=== PATIENT | female | born 1940 | race Caucasian/White ===

== ENCOUNTER 2019-02-28 15:25 | Observation (INO) ==
[2019-02-28] MEDS ORDERED: 0.9 % Sodium Chloride 1,000 ML IVC ONE (16:52)
[2019-02-28] MEDS ORDERED: *HR* Promethazine 25 MG/ML VIAL IVP ONE (16:52)
--- NOTE | 2019-02-28 17:00 | Emergency Department Note ---
Disposition Clinical Impression: Gastroenteritis HTN (hypertension) Qualifiers: Hypertension type: essential hypertension Qualified Code(s): I10 - Essential (primary) hypertension Disposition: Admitted As Inpatient Condition: Fair Time of Disposition: 19:45 General Adult HPI - General Chief complaint: ED Nausea/Vomiting/Diarrhea Stated complaint: N/V weakness, feels bad Time Seen by Provider: 02/28/19 16:40 Source: patient, family Mode of arrival: EMS Limitations: no limitations Nursing Notes Reviewed: Yes Vital Signs Reviewed: Yes - History of Present Illness HPI Narrative: Patient presents to the ED via EMS with complaint of nausea, vomiting and weakness. Symptoms began when she woke up this morning. She reports at least 5 episodes of nonbloody nonbilious emesis. His son states that her vomitus was thick and white. She has not eaten anything today due to the nausea and not feeling well. She had some abdominal cramps this morning but denies any pain currently. She feels generally weak and is still very nauseous despite taking Zofran at home and receiving Zofran by EMS. No diarrhea or constipation. She also reports some burning with urination that she noticed today. She reports intermittently feeling hot and cold with some sweats. She has a history of lung cancer that was diagnosed in 2010. She has done one round of radiation and 3 rounds of chemotherapy treatment and had a partial lung resection. She has not been on any treatment for her cancer since June. She has been on home oxygen at 3 L for over 10 years. History is also notable for COPD, CAD, high blood pressure, high cholesterol and [place]. On arrival her blood pressures to 21/79 her heart rate is 62. She states her heart rate is normally in the 50s and 60s due to being on beta blockers and her blood pressure has been high recently. There has been no recent medication changes. She takes 100 mg of metoprolol and 20 mg of lisinopril. She did not take her medications this morning due to her nausea and vomiting. Pain Scale: 0 - Related Data Home Medications Medication Instructions Recorded Confirmed Albuterol Sulfate [Ventolin Hfa] 2 puff IH Q4H PRN 07/05/16 02/28/19 Budesonide/Formoterol 160/4.5 2 puff IH BIDR 07/05/16 02/28/19 [Symbicort 160/4.5] Clopidogrel [Plavix] 75 mg PO DAILY 07/05/16 02/28/19 Furosemide [Lasix] 20 mg PO DAILY PRN 07/05/16 02/28/19 Lisinopril [Zestril] 20 mg PO BID 07/05/16 02/28/19 Levothyroxine [Synthroid] 25 mcg PO 0630 05/18/17 02/28/19 Metoprolol [Lopressor] 100 mg PO BID 05/18/17 02/28/19 Oxygen 3 l NS AD 05/18/17 02/28/19 Atorvastatin [Lipitor] 20 mg PO HS 02/28/19 02/28/19 Levocetirizine Dihydrochloride 5 mg PO DAILY 02/28/19 02/28/19 [Allergy Relief (Xyzal)] Montelukast [Singulair] 10 mg PO HS 02/28/19 02/28/19 Multivit/Iron/FA/K/Herb No.244 1 each PO DAILY 02/28/19 02/28/19 [Alive Women's Energy Mv Tablet] Allergies Allergy/AdvReac Type Severity Reaction Status Date / Time No Known Allergies Allergy Verified 02/28/19 15:26 Constitutional: Reports: fever (subjective), chills, weakness. Denies: weight change Eyes: Denies: eye pain, eye discharge, vision change ENT ED: Denies: ear pain, throat pain, dental pain, hearing loss, epistaxis, co ngestion, dysphagia Cardiovascular: Denies: chest pain, palpitations, dyspnea on exertion, edema, syncope Respiratory: Denies: cough, dyspnea, wheezes, hemoptysis, stridor Gastrointestinal: Reports: nausea, vomiting. Denies: abdominal pain, diarrhea, constipation, hematemesis, melena, hematochezia Genitourinary: Reports: dysuria. Denies: frequency, hematuria, discharge Musculoskeletal: Denies: back pain, neck pain, arthralgia, myalgia Integumentary: Denies: rash, abrasion, lesions Neurological: Denies: headache, weakness, numbness, paresthesias, confusion, abnormal gait, vertigo Psychiatric: Denies: anxiety, depression, suicidal thoughts, homicidal thoughts, auditory hallucinations, visual hallucinations Endocrine: Denies: fatigue Hematological/Lymphatic: Denies: easy bleeding, easy bruising Allergic/Immunologic: Denies: facial swelling, urticaria Past Medical History - Past Medical History Medical history: Reports: cancer, COPD, coronary artery disease, hyperlipidemia, hypertension, myocardial infarction, valvular heart disease Surgical history: Reports: angioplasty/stent, appendectomy, cataract, hysterectomy, other Psychiatric history: Reports: no psych history - Social History Smoking Status: Former smoker Smokeless Tobacco Status: No Alcohol use: Reports: none Drug use: Reports: none Physical Exam - General Limitations: no limitations General appearance: alert, in no apparent distress - Head Head exam: atraumatic, normocephalic, normal inspection - Eye Eye exam: Present: normal appearance, PERRL, EOMI - ENT ENT exam: normal exam, normal oropharynx, mucous membranes moist - Neck Neck exam: Present: normal inspection, full ROM, trachea midline - Chest Chest inspection: Present: normal inspection, symmetric chest wall rise - Respiratory Respiratory exam: Present: normal lung sounds bilaterally - Cardiovascular Cardiovascular exam: Present: regular rate, normal rhythm, normal heart sounds - Abdominal Exam Abdominal exam: Present: soft, tenderness, normal bowel sounds. Absent: distention, guarding, rebound, rigidity Abdominal tenderness: Present: diffuse, mild - Extremities Exam Extremities exam: Present: normal inspection, full ROM. Absent: tenderness, pedal edema - Back Exam Back exam: Present: normal inspection, full ROM. Absent: tenderness, CVA tenderness (R), CVA tenderness (L) - Neurological Exam Neurological exam: Present: alert, oriented X3 - Psychiatric Psychiatric exam: Present: normal affect, normal mood - Skin Skin exam: Present: warm, dry, intact, normal color Course Course Narrative: Patient presents to the ED complaining of nausea, vomiting, generalized weakness with some abdominal cramps this morning and subjective fever and chills. On arrival she is afebrile but hypertensive and bradycardic. EKG on arrival shows only sinus bradycardia with no block or other abnormalities. Will obtain lab work for further evaluation. We will give medication for nausea and hypertension. - Reevaluation(s) Reevaluation #1: Blood pressure did improve after getting hydralazine. Heart rate also increased up into the 60s. Reevaluation #2: Lab work was unremarkable other than some trace blood in her urine. She has not had any vomiting since she arrived but is still very nauseous. Blood pressure has started to increase back up as well. We will give patient's routine home meds. Repeat EKG still shows a sinus rhythm with just a slightly increased rate from previous. Discussed with patient all test results. She is still extremely nauseous and weak and does not feel steady on her feet to go home. I spoke to the hospitalist on-call, Dr. Subramanian, who has agreed to accept patient. Vital Signs Temperature 97.2 F L 02/28/19 15:27 Pulse Rate 52 02/28/19 15:27 Respiratory Rate 16 02/28/19 15:27 Blood Pressure 221/79 02/28/19 15:27 O2 Sat by Pulse Oximetry 98 02/28/19 15:27 Temperature 98.9 F 03/01/19 03:31 Pulse Rate 54 03/01/19 03:31 Respiratory Rate 17 03/01/19 03:31 Blood Pressure 149/66 03/01/19 03:31 O2 Sat by Pulse Oximetry 99 03/01/19 03:31 Oxygen Delivery Oxygen Delivery Nasal Cannula Medical Decision Making - Medical Records Medical records reviewed: Yes I reviewed the patient's medical records. - Lab Data Lab results reviewed: Yes I reviewed the patient's lab results. Result diagrams: 02/28/19 17:22 02/28/19 17:22 Lab Results 02/28/19 02/28/19 02/28/19 Range/Units 17:22 17:22 17:22 WBC 7.2 (4.3-11.1) K/mcL RBC 4.25 (3.82-4.97) M/mcL Hgb 12.6 (11.5-15.4) g/dL Hct 39.0 (35.3-44.9) % MCV 91.8 (83.0-100.0) fL MCH 29.6 (28.0-33.3) pg MCHC 32.3 (31.6-35.5) g/dL RDW 13.2 (11.5-14.5) % Plt Count 154 (140-400) K/mcL MPV 11.8 (9.4-12.4) fL Immature Gran % 0.1 (0-4) % Seg Neutrophils % 88.0 % Lymphocytes % 9.7 % Monocytes % 2.1 % Eosinophils % 0.0 % Basophils % 0.1 % Neutrophils # 6.4 (1.6-8.9) K/mcL Lymphocytes # 0.7 (0.6-4.6) K/mcL Monocytes # 0.2 (0.0-1.3) K/mcL Eosinophils # 0.0 (0.0-0.6) K/mcL Basophils # 0.0 (0.0-0.2) K/mcL Sodium 136 (136-145) mEq/L Potassium 3.6 (3.5-5.1) mEq/L Chloride 93 L (98-107) mEq/L Carbon Dioxide 35 H (23-29) mEq/L BUN 11 (8-23) mg/dL Creatinine 0.68 (0.60-1.20) mg/dL Est GFR ( Amer) > 60 (> 60) Est GFR (Non-Af Amer) > 60 (> 60) BUN/Creatinine Ratio 16 (6-26) Glucose 152 H (70-105) mg/dL Calculated Osmolality 284 (280-300) Calcium 10.1 (8.6-10.3) mg/dL Total Bilirubin 0.8 (0.3-1.0) mg/dL AST 38 (13-39) Units/L ALT 20 (7-52) Units/L Alkaline Phosphatase 68 (34-104) Units/L Troponin I < 0.03 (< 0.04) ng/mL Serum Total Protein 6.9 (6.4-8.9) g/dL Albumin 4.1 (3.5-5.7) g/dL Globulin 2.8 (2.4-3.5) g/dL Albumin/Globulin Ratio 1.5 (1.1-2.2) Lipase 24 (11-82) Units/L Urine Color (Yellow) Urine Clarity (Clear) Urine pH (5.0-8.0) pH Units Ur Specific [place] (1.010-1.025) Urine Protein (Neg-Trace) mg/dL Urine Glucose (UA) (Normal) mg/dL Urine Ketones (Negative) mg/dL Urine Blood (Negative) Urine Nitrite (Negative) Urine Bilirubin (Negative) Urine Urobilinogen (Normal) mg/dL Ur Leukocyte Esterase (Negative) Urine Microscopic RBC (0-3) per hpf Urine Microscopic WBC (0-3) per hpf Ur Squamous Epith Cells (None-Few) per lpf Amorphous Sediment (Few) Urine Mucus (Few) Ur Culture Indicated? (NO) 02/28/19 Range/Units 18:10 WBC (4.3-11.1) K/mcL RBC (3.82-4.97) M/mcL Hgb (11.5-15.4) g/dL Hct (35.3-44.9) % MCV (83.0-100.0) fL MCH (28.0-33.3) pg MCHC (31.6-35.5) g/dL RDW (11.5-14.5) % Plt Count (140-400) K/mcL MPV (9.4-12.4) fL Immature Gran % (0-4) % Seg Neutrophils % % Lymphocytes % % Monocytes % % Eosinophils % % Basophils % % Neutrophils # (1.6-8.9) K/mcL Lymphocytes # (0.6-4.6) K/mcL Monocytes # (0.0-1.3) K/mcL Eosinophils # (0.0-0.6) K/mcL Basophils # (0.0-0.2) K/mcL Sodium (136-145) mEq/L Potassium (3.5-5.1) mEq/L Chloride (98-107) mEq/L Carbon Dioxide (23-29) mEq/L BUN (8-23) mg/dL Creatinine (0.60-1.20) mg/dL Est GFR ( Amer) (> 60) Est GFR (Non-Af Amer) (> 60) BUN/Creatinine Ratio (6-26) Glucose (70-105) mg/dL Calculated Osmolality (280-300) Calcium (8.6-10.3) mg/dL Total Bilirubin (0.3-1.0) mg/dL AST (13-39) Units/L ALT (7-52) Units/L Alkaline Phosphatase (34-104) Units/L Troponin I (< 0.04) ng/mL Serum Total Protein (6.4-8.9) g/dL Albumin (3.5-5.7) g/dL Globulin (2.4-3.5) g/dL Albumin/Globulin Ratio (1.1-2.2) Lipase (11-82) Units/L Urine Color Light Yellow (Yellow) Urine Clarity Clear (Clear) Urine pH 8.5 H (5.0-8.0) pH Units Ur Specific [place] 1.015 (1.010-1.025) Urine Protein 100 H (Neg-Trace) mg/dL Urine Glucose (UA) Normal (Normal) mg/dL Urine Ketones 15 H (Negative) mg/dL Urine Blood Trace-intact H (Negative) Urine Nitrite Negative (Negative) Urine Bilirubin Negative (Negative) Urine Urobilinogen Normal (Normal) mg/dL Ur Leukocyte Esterase Negative (Negative) Urine Microscopic RBC 0-3 (0-3) per hpf Urine Microscopic WBC 0-3 (0-3) per hpf Ur Squamous Epith Cells None Seen (None-Few) per lpf Amorphous Sediment Few (Few) Urine Mucus Few (Few) Ur Culture Indicated? NO (NO) - Radiology Data Radiology results reviewed: Yes I reviewed the patient's radiology results. ITS Impressions Chest X-Ray 02/28/19 16:54 IMPRESSION: 1. Low lung volumes but no active pulmonary disease. D/ / Ziyad Addison MD / Ziyad Addison MD Interpreting Provider: Ziyad Addison MD - EKG Data EKG #1 EKG attestation: Yes I reviewed and interpreted this EKG. EKG shows normal: sinus rhythm Rate: bradycardia (rate 49) Rhythm: NSR [place]/QRS: IVCD When compared to previous EKG there are: changes noted (rate change from 63 on 05/18/17 to 49 ) EKG #2 EKG shows normal: sinus rhythm Rate: normal (rate 61) [place]/QRS: normal, IVCD When compared to previous EKG there are: no significant changes (other than increased rate)
[2019-02-28 17:48] LABS: Alanine Aminotransferase 20 Units/L (7-52); Albumin 4.1 g/dL (3.5-5.7); Albumin/Globulin Ratio 1.5 (1.1-2.2); Alkaline Phosphatase 68 Units/L (34-104); Aspartate Amino Transferase 38 Units/L (13-39); BUN/Creatinine Ratio 16 (6-26); Bilirubin,Total 0.8 mg/dL (0.3-1.0); Blood Urea Nitrogen 11 mg/dL (8-23); Calcium 10.1 mg/dL (8.6-10.3); Carbon Dioxide 35 mEq/L (23-29); Chloride 93 mEq/L (98-107); Globulin 2.8 g/dL (2.4-3.5); Glucose 152 mg/dL (70-105); Lipase 24 Units/L (11-82); Osmolality,Calculated 284 (280-300); Potassium 3.6 mEq/L (3.5-5.1); Sodium 136 mEq/L (136-145); Total Protein 6.9 g/dL (6.4-8.9); eGFR For African Americans > 60 (> 60); eGFR For Non-African Americans > 60 (> 60)
[2019-02-28 18:04] LABS: Basophils % 0.1 %; Hemoglobin 12.6 g/dL (11.5-15.4); Immature Granulocytes % 0.1 % (0-4); Lymphocytes # 0.7 K/mcL (0.6-4.6); Lymphocytes % 9.7 %; Mean Corpuscular HGB Conc 32.3 g/dL (31.6-35.5); Mean Corpuscular Hemoglobin 29.6 pg (28.0-33.3); Mean Corpuscular Volume 91.8 fL (83.0-100.0); Mean Platelet Volume 11.8 fL (9.4-12.4); Monocytes # 0.2 K/mcL (0.0-1.3); Monocytes % 2.1 %; Neutrophils # 6.4 K/mcL (1.6-8.9); Platelet Count 154 K/mcL (140-400); Red Blood Count 4.25 M/mcL (3.82-4.97); Red Cell Distribution Width 13.2 % (11.5-14.5); White Blood Count 7.2 K/mcL (4.3-11.1)
[2019-02-28 18:16] LABS: Bilirubin,Urine Negative (Negative); Blood,Urine Trace-intact (Negative); Clarity,Urine Clear (Clear); Glucose,Urine (UA) Normal (Normal); Ketones,Urine 15 mg/dL (Negative); Leukocyte Esterase,Urine Negative (Negative); Nitrite,Urine Negative (Negative); PH,Urine 8.5 pH Units (5.0-8.0); Protein,Urine 100 mg/dL (Neg-Trace); Specific Gravity,Urine 1.015 (1.010-1.025); Urobilinogen,Urine Normal (Normal)
[2019-02-28 18:19] LABS: Color,Urine Light Yellow (Yellow)
[2019-02-28 18:26] LABS: Amorphous Sediment,Urine Few (Few); Mucus,Urine Few (Few); RBC,Urine 0-3 per hpf (0-3); Squamous Epithelial Cell,Urine None Seen per lpf (None-Few); WBC,Urine 0-3 per hpf (0-3)
[2019-02-28] MEDS ORDERED: Ondansetron 4 MG/2 ML VIAL IVP ONE (19:01)
[2019-02-28] MEDS ORDERED: Naloxone 0.4 MG/ML INJ IVP PRN ×2 (19:47→20:45)
[2019-02-28] MEDS ORDERED: Ondansetron 4 MG/2 ML VIAL IVP PRN ×2 (19:53→20:45)
[2019-02-28] MEDS ORDERED: Lisinopril 20 MG TABLET PO SCH (20:00)
[2019-02-28] MEDS ORDERED: 0.9 % Sodium Chloride 1,000 ML IVC SCH (20:00)
[2019-02-28] MEDS ORDERED: NON-FORMULARY MEDICATION 1 EACH EACH (Oxygen 3 L) NS SCH (20:45)
[2019-02-28] MEDS: 0.9 % Sodium Chloride 1,000 ML IVC SCH (22:51)
[2019-02-28] MEDS: Lisinopril 20 MG TABLET PO SCH (22:52)
[2019-02-28] MEDS: Budesonide/Formoterol 160/4.5 1 PUFF INH IH SCH (23:16)
[2019-03-01] MEDS: Levothyroxine 25 MCG TABLET PO SCH (06:08)
[2019-03-01] MEDS: 0.9 % Sodium Chloride 1,000 ML IVC SCH (06:42)
[2019-03-01] MEDS: Multivit/Ca/Min/Fe/FA 1 TAB TABLET PO SCH (08:26)
[2019-03-01] MEDS: [UNRECOGNIZED DRUG - REMARK] PO SCH (08:26)
[2019-03-01] MEDS: Lisinopril 20 MG TABLET PO SCH ×2 (08:26→20:53)
[2019-03-01] MEDS ORDERED: Lisinopril 20 MG TABLET PO SCH (09:00)
[2019-03-01] MEDS: Budesonide/Formoterol 160/4.5 1 PUFF INH IH SCH ×2 (09:03→22:34)
--- NOTE | 2019-03-01 11:38 | Internal Med History&Physical ---
Date of Encounter: 03/01/19 Time of Encounter: 11:05 Assessment and Plan (1) Gastroenteritis Current visit: Yes Status: Acute IV fluids have been ordered. Anti-emetics will be given as needed. (2) HTN (hypertension) Current visit: Yes Status: Chronic Continue metoprolol and lisinopril. Hydralazine will also be given as needed to control blood pressure Qualifiers: Hypertension type: essential hypertension Qualified Code(s): I10 - Essential (primary) hypertension (3) COPD (chronic obstructive pulmonary disease) Current visit: No Status: Chronic Continue oxygen 28/03 with Singulair, Symbicort, and prn albuterol Rx Qualifiers: COPD type: emphysema Emphysema type: unspecified Qualified Code(s): J43.9 - Emphysema, unspecified (4) Lung cancer Current visit: No Status: Acute As per oncologist Qualifiers: Laterality: unspecified laterality Lung location: unspecified part of lung Qualified Code(s): C34.90 - Malignant neoplasm of unspecified part of unspecified bronchus or lung (5) Hypothyroidism Current visit: Yes Status: Chronic Check TSH in a.m. Qualifiers: Hypothyroidism type: unspecified Qualified Code(s): E03.9 - Hypothyroidism, unspecified (6) Weight loss Current visit: Yes Status: Acute Check TSH in a.m. Lung cancer status not known Internal Medicine - H&P: HPI Chief complaint: Vomiting Admitted From: Emergency Dept Plans for Post Hospital Care: Home History of present illness: Ms. Gillespie is a 78 year old female who came to emergency room stating she had 3-4 episodes of nonbloody vomiting onset morning of February 28. She denies diarrhea. She reports feeling feverish and chills. There was no significant abdominal pain. She was evaluated in emergency room and was felt to have acute gastroenteritis. She was admitted to [facility] floor for ongoing care needs. She denies other family members with similar symptoms. GI history is pertinent for a reported pancreatic mass found fall 2017. She declined biopsy. She denies disorders of her liver gallbladder or exocrine pancreas otherwise. Past Med Surg Social Fam HX - Past Medical History Medical history: cancer, COPD, coronary artery disease, hyperlipidemia, hypertension, myocardial infarction, valvular heart disease Additional medical history: Lung cancer Psychiatric history: no psych history - Past Surgical History Surgical History: angioplasty/stent, appendectomy, cataract, hysterectomy, other Additional surgical history: 2 CARDIAC STENTS. ROTATOR CUFF , LUMPECTOMY, ABCESS LEFT BREAST REMOVED, R UPPER LOBECTOMY, - Social History Smoking Status: Former smoker Smokeless Tobacco Status: No Alcohol use: none Drug use: none - Family History Father Living Status: Hx Family Cardiac Disorders: Yes (ID) Mother Living Status: Hx Family Cardiac Disorders: Yes Sister Hx Family Cardiac Disorders: Yes (ID AT 60) Internal Medicine - H&P: Meds Albuterol Sulfate [Ventolin Hfa] 2 puff IH Q4H PRN 07/05/16 [History] Budesonide/Formoterol 160/4.5 [Symbicort 160/4.5] 2 puff IH BIDR 07/05/16 [History] Clopidogrel [Plavix] 75 mg PO DAILY 07/05/16 [History] Furosemide [Lasix] 20 mg PO DAILY PRN 07/05/16 [History] Lisinopril [Zestril] 20 mg PO BID 07/05/16 [History] Levothyroxine [Synthroid] 25 mcg PO 0630 05/18/17 [History] Metoprolol [Lopressor] 100 mg PO BID 05/18/17 [History] Oxygen 3 l NS AD 05/18/17 [History] Atorvastatin [Lipitor] 20 mg PO HS 02/28/19 [History] Levocetirizine Dihydrochloride [Allergy Relief (Xyzal)] 5 mg PO DAILY 02/28/19 [History] Montelukast [Singulair] 10 mg PO HS 02/28/19 [History] Multivit/Iron/FA/K/Herb No.244 [Alive Women's Energy Mv Tablet] 1 each PO DAILY 02/28/19 [History] Allergy/AdvReac Type Severity Reaction Status Date / Time No Known Allergies Allergy Verified 02/28/19 15:26 All Systems PM: A 10-system review of systems was performed and is negative for pertinent findings except as documented above in the HPI. Review of systems: Gen.: Her weight has decreased from 94.574 kg on 05/20/2017 to present weight of 73.4 kg. This was unintentional. Cardiovascular: She has hypertension and known ASHD status post ID September 2008. She had 2 stents placed immediately post ID. She reports no further heart catheter has been done. Regadenoson EST 05/20/2017 showed LVEF of 62%. The EKG and perfusion imaging was negative for ischemia or infarct. Echocardiogram 05/19/2017 showed LVEF of 50-55%. There was mild aortic regurgitation. There was inability to estimated RVSP due to lack of TR jet. Interventricular septum and posterior wall thickness measurements were normal at 1.00 cm. E/A ratio was 0.4. She denies DVT or pulmonary embolism. Respiratory: She smoked from age [age] up to 2 packs per day. She has a diagnosis of COPD and wears oxygen 28/03. She was diagnosed with CARRIE and used CPAP for a period of time but states her machine was "stolen" and she has not had replacement unit. She reports she was diagnosed with lung cancer 2011 underwent resection followed by chemotherapy. She follows at [facility]. GI: As per history of present illness : She reports occasional urinary incontinence. She denies other kidney or bladder disorders. Neurologic: She denies large distribution strokes or seizures. Endocrine: She has hypothyroidism and hyperlipidemia. She denies known diabetes. Hematology/oncology: She had lung cancer as per above. She denies other internal malignancies or anemia Psychiatric: She has anxiety but denies depression or other mental health issues. [place] skeletal: She has DJD but denies gout or other bone joint or muscle disorders. - Constitutional Vitals: Temp Pulse Resp BP Pulse Ox 98.0 F 63 16 204/74 93 03/01/19 08:16 03/01/19 08:16 03/01/19 09:04 03/01/19 08:16 03/01/19 09:04 Exam: Gen.: She is a well-developed well-nourished female lying in bed who complains of nausea. HEENT: Head is atraumatic and normocephalic. Eyes: EOMI. There is no scleral icterus. Mouth: Mucosa is moist. Neck: Supple and nontender. There is no thyromegaly or adenopathy noted. Heart: Regular without murmurs gallops or ectopics Lungs: No wheezes or crackles are heard. Abdomen: Soft and nontender. No masses or guarding are noted. Bowel sounds are diminished. Extremities: There is no cyanosis edema or clubbing noted. Dorsalis pedis and posterior tibial pulses are trace to 1+ palpable bilaterally. Neurologic: Mental status: She is talkative and a fair to good historian. Cranial nerves: Smile is symmetric. Forehead wrinkles bilaterally. Tongue protrudes midline. EOMI. Motor: There is no pronator drift. Cerebellar: Finger to nose is intact bilaterally. Skin: Warm and dry Internal Med - H&P Results - Labs CBC & Chem 7: 02/28/19 17:22 02/28/19 17:22 Labs: Short CBC 02/28/19 Range/Units 17:22 WBC 7.2 (4.3-11.1) K/mcL Hgb 12.6 (11.5-15.4) g/dL Hct 39.0 (35.3-44.9) % Plt Count 154 (140-400) K/mcL Neutrophils # 6.4 (1.6-8.9) K/mcL BMP 02/28/19 17:22 Sodium 136 Potassium 3.6 Chloride 93 L Carbon Dioxide 35 H BUN 11 Creatinine 0.68 Glucose 152 H Calcium 10.1 Cardiac Enzymes 02/28/19 Range/Units 17:22 Troponin I < 0.03 (< 0.04) ng/mL Liver Function 02/28/19 Range/Units 17:22 Total Bilirubin 0.8 (0.3-1.0) mg/dL AST 38 (13-39) Units/L ALT 20 (7-52) Units/L Alkaline Phosphatase 68 (34-104) Units/L Albumin 4.1 (3.5-5.7) g/dL Urine 02/28/19 Range/Units 18:10 Urine Color Light Yellow (Yellow) Urine Clarity Clear (Clear) Urine pH 8.5 H (5.0-8.0) pH Units Ur Specific [place] 1.015 (1.010-1.025) Urine Protein 100 H (Neg-Trace) mg/dL Urine Glucose (UA) Normal (Normal) mg/dL - Impressions ITS Impressions Chest X-Ray 02/28/19 16:54 IMPRESSION: 1. Low lung volumes but no active pulmonary disease. D/ / Ziyad Addison MD / Ziyad Addison MD Interpreting Provider: Ziyad Addison MD - VTE Reasons for not Prescribing Prophylaxis: Treatment not Indicated - Low risk for VTE
[2019-03-01] MEDS ORDERED: Ondansetron 4 MG/2 ML VIAL IVP PRN (11:49)
[2019-03-01] MEDS: 0.45 % Sodium Chloride w/KCl 20 MEQ/1,000 ML MLS IVC SCH ×2 (12:23→22:36)
--- NOTE | 2019-03-01 16:00 | Electrocardiograph Report ---
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
--- NOTE | 2019-03-01 16:09 | Electrocardiograph Report ---
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
--- NOTE | 2019-03-01 16:41 | Electrocardiograph Report ---
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
[2019-03-01] MEDS: *HR* Promethazine 25 MG/ML VIAL IVP PRN (22:47)
[2019-03-02] MEDS: *HR* Promethazine 25 MG/ML VIAL IVP PRN ×3 (03:01→13:37)
[2019-03-02] MEDS: 0.45 % Sodium Chloride w/KCl 20 MEQ/1,000 ML MLS IVC SCH (05:30)
[2019-03-02] MEDS: Levothyroxine 25 MCG TABLET PO SCH (05:30)
[2019-03-02 06:16] LABS: Basophils % 0.1 %; Eosinophils % 0.1 %; Hemoglobin 12.8 g/dL (11.5-15.4); Immature Granulocytes % 0.4 % (0-4); Lymphocytes % 9.2 %; Mean Corpuscular Hemoglobin 29.6 pg (28.0-33.3); Mean Corpuscular Volume 92.4 fL (83.0-100.0); Mean Platelet Volume 11.7 fL (9.4-12.4); Monocytes # 0.6 K/mcL (0.0-1.3); Monocytes % 5.6 %; Neutrophils # 9.3 K/mcL (1.6-8.9); Platelet Count 172 K/mcL (140-400); Red Blood Count 4.33 M/mcL (3.82-4.97); Red Cell Distribution Width 13.4 % (11.5-14.5); Segmented Neutrophils % 84.6 %
[2019-03-02 06:55] LABS: BUN/Creatinine Ratio 18 (6-26); Blood Urea Nitrogen 10 mg/dL (8-23); Calcium 9.7 mg/dL (8.6-10.3); Carbon Dioxide 37 mEq/L (23-29); Chloride 91 mEq/L (98-107); Glucose 126 mg/dL (70-105); Magnesium 1.3 mg/dL (1.6-2.6); Osmolality,Calculated 277 (280-300); Potassium 3.1 mEq/L (3.5-5.1); Sodium 133 mEq/L (136-145); eGFR For African Americans > 60 (> 60); eGFR For Non-African Americans > 60 (> 60)
[2019-03-02] MEDS: Multivit/Ca/Min/Fe/FA 1 TAB TABLET PO SCH (09:29)
[2019-03-02] MEDS: Lisinopril 20 MG TABLET PO SCH ×2 (09:30→20:28)
[2019-03-02] MEDS: Budesonide/Formoterol 160/4.5 1 PUFF INH IH SCH ×2 (09:55→23:03)
[2019-03-02] MEDS ORDERED: Isovue-370 500 ML BOTTLE IVP ONE (10:47)
--- NOTE | 2019-03-02 10:54 | Internal Med Progress Note ---
Date of Encounter: 03/02/19 Time of Encounter: 10:52 - Assessment and plan (1) Intractable nausea and vomiting Current Visit: Yes Status: Acute Assessment and plan: Unclear etiology with persistent nausea and intermittent vomiting with diminished BMs. There is report of history of underlying pancreatic mass. Will obtain CT abd/pelvis for further evaluation and proceed with supportive care. Qualifiers: Vomiting type: unspecified Qualified Code(s): R11.2 - Nausea with vomiting, unspecified (2) Hypokalemia Current Visit: Yes Status: Acute Assessment and plan: Will replace with oral and IV potassium and monitor. (3) HTN (hypertension) Current Visit: Yes Status: Chronic Assessment and plan: Uncontrolled. Will continue current regimen for now and treat underlying nausea. Qualifiers: Hypertension type: essential hypertension Qualified Code(s): I10 - Essential (primary) hypertension (4) COPD (chronic obstructive pulmonary disease) Current Visit: No Status: Chronic Assessment and plan: Stable. Continue home regimen. Qualifiers: COPD type: emphysema Emphysema type: unspecified Qualified Code(s): J43.9 - Emphysema, unspecified (5) Hypothyroidism Current Visit: Yes Status: Chronic Assessment and plan: Will continue home replacement regimen. Qualifiers: Hypothyroidism type: unspecified Qualified Code(s): E03.9 - Hypothyroidism, unspecified - Time Spent With Patient 25 - 35 minutes - Subjective Interval history: Pt reports that nausea somewhat better, but remains moderate to severe. She notes that she has no appetite and feels sick with any oral intake. No diarrhea. + abdominal bloating and fullness without nat abdominal pain. Pt reports no BMs for 4 days and denies any recent flatus. - Constitutional Vitals: Temp Pulse Resp BP Pulse Ox 98.8 F 76 18 158/85 97 03/02/19 06:25 03/02/19 06:25 03/02/19 09:56 03/02/19 06:25 03/02/19 09:56 Exam: Gen: Lying in bed, NAD HEENT: NC, AT Neck: Trachea midline, no mass Pulm: No respiratory distress, CTAB CV: Normal S1 and S2, RRR Abdomen: Soft, NT, + mild distension, BS present, but diminished Ext: No C/C/E Neuro: No appreciable motor/sensor deficits Skin: Warm and dry, no rash Psych: A&Ox3 Internal Medicine: Result - Labs CBC & Chem 7: 03/02/19 05:56 03/02/19 05:56 Labs: Short CBC 03/02/19 Range/Units 05:56 WBC 11.0 D (4.3-11.1) K/mcL Hgb 12.8 (11.5-15.4) g/dL Hct 40.0 (35.3-44.9) % Plt Count 172 (140-400) K/mcL Neutrophils # 9.3 H (1.6-8.9) K/mcL BMP 03/02/19 05:56 Sodium 133 L Potassium 3.1 L Chloride 91 L Carbon Dioxide 37 H BUN 10 Creatinine 0.57 L Glucose 126 H Calcium 9.7 Cardiac Enzymes 03/01/19 03/01/19 Range/Units 13:50 15:32 Troponin I 0.05 H* 0.05 H* (< 0.04) ng/mL - VTE Reasons for not Prescribing Prophylaxis: Treatment not Indicated - Low risk for VTE Consult Discharge Plan - Plan Referrals: Petros Rodriguez MD [Primary Care Provider] - 1 week
[2019-03-02] MEDS: [UNRECOGNIZED DRUG - REMARK] PO SCH (13:24)
[2019-03-02] MEDS ORDERED: 0.9 % Sodium Chloride 1,000 ML IVC SCH (15:00)
[2019-03-02 18:25] LABS: Bilirubin,Urine Negative (Negative); Blood,Urine Trace-intact (Negative); Clarity,Urine Clear (Clear); Color,Urine Yellow (Yellow); Glucose,Urine (UA) Normal (Normal); Ketones,Urine Negative (Negative); Leukocyte Esterase,Urine Negative (Negative); Nitrite,Urine Negative (Negative); PH,Urine 7.5 pH Units (5.0-8.0); Protein,Urine 100 mg/dL (Neg-Trace); Specific Gravity,Urine 1.015 (1.010-1.025); Urobilinogen,Urine Normal (Normal)
[2019-03-02 18:31] LABS: RBC,Urine 0-3 per hpf (0-3); Squamous Epithelial Cell,Urine Few per lpf (None-Few); WBC,Urine 0-3 per hpf (0-3)
[2019-03-02] MEDS ORDERED: cefTRIAXone 1,000 MG in 0.9 % Sodium Chloride Mini Bag 100 ML IVPB SCH (19:00)
[2019-03-02] MEDS: Ondansetron 4 MG/2 ML VIAL IVP PRN (20:28)
[2019-03-02] MEDS: cefTRIAXone 2,000 MG in Water for inj. (sterile) 20 ML IVPB SCH (20:29)
[2019-03-02] MEDS: D5% in 0.9% NACL w KCl 20 MEQ/1,000 ML MLS IVC SCH (22:46)
[2019-03-03 04:57] LABS: Basophils % 0.2 %; Eosinophils % 0.4 %; Hematocrit 41.2 % (35.3-44.9); Hemoglobin 13.1 g/dL (11.5-15.4); Immature Granulocytes % 0.4 % (0-4); Lymphocytes # 1.3 K/mcL (0.6-4.6); Lymphocytes % 14.7 %; Mean Corpuscular HGB Conc 31.8 g/dL (31.6-35.5); Mean Corpuscular Hemoglobin 29.6 pg (28.0-33.3); Mean Corpuscular Volume 93.2 fL (83.0-100.0); Mean Platelet Volume 11.9 fL (9.4-12.4); Monocytes # 0.8 K/mcL (0.0-1.3); Neutrophils # 6.9 K/mcL (1.6-8.9); Platelet Count 186 K/mcL (140-400); Red Blood Count 4.42 M/mcL (3.82-4.97); Red Cell Distribution Width 13.2 % (11.5-14.5); Segmented Neutrophils % 75.3 %; White Blood Count 9.1 K/mcL (4.3-11.1)
[2019-03-03 05:33] LABS: Alanine Aminotransferase 16 Units/L (7-52); Albumin 3.7 g/dL (3.5-5.7); Albumin/Globulin Ratio 1.4 (1.1-2.2); Alkaline Phosphatase 55 Units/L (34-104); Aspartate Amino Transferase 21 Units/L (13-39); BUN/Creatinine Ratio 18 (6-26); Bilirubin,Total 0.7 mg/dL (0.3-1.0); Blood Urea Nitrogen 12 mg/dL (8-23); Calcium 9.5 mg/dL (8.6-10.3); Carbon Dioxide 35 mEq/L (23-29); Chloride 95 mEq/L (98-107); Globulin 2.6 g/dL (2.4-3.5); Glucose 125 mg/dL (70-105); Osmolality,Calculated 281 (280-300); Sodium 135 mEq/L (136-145); Total Protein 6.3 g/dL (6.4-8.9); eGFR For African Americans > 60 (> 60); eGFR For Non-African Americans > 60 (> 60)
[2019-03-03] MEDS: Levothyroxine 25 MCG TABLET PO SCH (06:39)
[2019-03-03] MEDS: cefTRIAXone 2,000 MG in Water for inj. (sterile) 20 ML IVPB SCH (09:31)
[2019-03-03] MEDS: Multivit/Ca/Min/Fe/FA 1 TAB TABLET PO SCH (09:32)
[2019-03-03] MEDS: D5% in 0.9% NACL w KCl 20 MEQ/1,000 ML MLS IVC SCH (09:32)
[2019-03-03] MEDS: [UNRECOGNIZED DRUG - REMARK] PO SCH (09:32)
[2019-03-03] MEDS: Lisinopril 20 MG TABLET PO SCH (09:32)
[2019-03-03] MEDS: Budesonide/Formoterol 160/4.5 1 PUFF INH IH SCH (09:37)
[2019-03-03] MEDS: Ondansetron 4 MG/2 ML VIAL IVP PRN (09:47)
[2019-03-03 11:32] VITALS: BP 177/10
--- NOTE | 2019-03-03 12:15 | Discharge Summary ---
Orders not resulted at time of discharge: Pending orders 03/02/19 18:15 Culture,Urine [RM] Stat 03/02/19 19:12 EKG [ECG 12 lead ECG] [ECG] Routine Date of Encounter: 03/03/19 Time of Encounter: 12:13 - Discharge Diagnosis (1) Intractable nausea and vomiting Priority: Primary Status: Acute Comments: Persistent without clear etiology with underlying R renal patchy enhancement on CT scan concerning for pyelonephritis vs vascular etiology. Renal function has been normal. UA benign. Will arrange transfer to outside facility per patient request for further evaluation. Qualifiers: Vomiting type: unspecified Qualified Code(s): R11.2 - Nausea with vomiting, unspecified (2) Hypokalemia Priority: Secondary Status: Resolved Comments: Resolved with replacement. Will monitor. (3) HTN (hypertension) Priority: Secondary Status: Chronic Qualifiers: Hypertension type: essential hypertension Qualified Code(s): I10 - Es sential (primary) hypertension (4) COPD (chronic obstructive pulmonary disease) Priority: Secondary Status: Chronic Qualifiers: COPD type: emphysema Emphysema type: unspecified Qualified Code(s): J43.9 - Emphysema, unspecified (5) Hypothyroidism Priority: Secondary Status: Chronic Qualifiers: Hypothyroidism type: unspecified Qualified Code(s): E03.9 - Hypothyroidism, unspecified Hospital course: Ms. Gillespie is a 78 year old female with known pancreatic mass, lung cancer followed by [facility], severe COPD with 3L home oxygen requirement and CAD s/p remote PCI and NSTEMI (2008) with preserved EF that presented to ED with 1 day history of intractable nausea and non-bilious, non-bloody emesis which began on the morning of admission, 04/30/2019. She was evaluated in the ED and admitted to the med surg floor for supportive care for presumed gastroenteritis. She did not improve with supportive care and continued to have nausea with minimal oral intake and intermittent emesis. She was given IF fluids and anti- emetics. No diarrhea noted. She had only a small regular BM on day of admission with no further BMs since that time. A CT of the abdomen and pelvis was performed and revealed a known 2.4cm pancreatic head mass and patchy area of abnormal enhancement of right kidney with minimal surround perinephric stranding concerning for pyelonephritis vs vascular etiology such as embolic disease. Patient was then initiated on ceftriaxone IV and had repeat UA drawn prior to first dose of antibiotic that was normal and without evidence of infection. Urine culture is pending. Patient and family are requesting transfer to [facility] for further evaluation. I have spoke with the [facility] transfer line and will arrange transfer of this patient for further evaluation and treatment of her intractable nausea along with abnormal renal enhancement on CT. Discharge discussed with: patient, family, nurse - Time Spent with Patient Total time spent providing and/or coordinating discharge services: Time spent: Greater than 30 minutes - Discharge Medications Prescriptions: Continued Metoprolol [Lopressor] 100 mg PO BID Oxygen 3 l NS AD Levothyroxine [Synthroid] 25 mcg PO 0630 Budesonide/Formoterol 160/4.5 [Symbicort 160/4.5] 2 puff IH BIDR Lisinopril [Zestril] 20 mg PO BID Clopidogrel [Plavix] 75 mg PO DAILY Furosemide [Lasix] 20 mg PO DAILY PRN PRN Reason: Edema Albuterol Sulfate [Ventolin Hfa] 2 puff IH Q4H PRN PRN Reason: Shortness Of Breath Levocetirizine Dihydrochloride [Allergy Relief (Xyzal)] 5 mg PO DAILY Montelukast [Singulair] 10 mg PO HS Atorvastatin [Lipitor] 20 mg PO HS Multivit/Iron/FA/K/Herb No.244 [[employer]ive [employer] Mv Tablet] 1 each PO DAILY Home Medications: Albuterol Sulfate [Ventolin Hfa] 2 puff IH Q4H PRN 07/05/16 [History] Budesonide/Formoterol 160/4.5 [Symbicort 160/4.5] 2 puff IH BIDR 07/05/16 [History] Clopidogrel [Plavix] 75 mg PO DAILY 07/05/16 [History] Furosemide [Lasix] 20 mg PO DAILY PRN 07/05/16 [History] Lisinopril [Zestril] 20 mg PO BID 07/05/16 [History] Levothyroxine [Synthroid] 25 mcg PO 0630 05/18/17 [History] Metoprolol [Lopressor] 100 mg PO BID 05/18/17 [History] Oxygen 3 l NS AD 05/18/17 [History] Atorvastatin [Lipitor] 20 mg PO HS 02/28/19 [History] Levocetirizine Dihydrochloride [Allergy Relief (Xyzal)] 5 mg PO DAILY 02/28/19 [History] Montelukast [Singulair] 10 mg PO HS 02/28/19 [History] Multivit/Iron/FA/K/Herb No.244 [Alive [employer] Energy Mv Tablet] 1 each PO DAILY 02/28/19 [History] Allergies/Adverse Reactions: Allergy/AdvReac Type Severity Reaction Status Date / Time No Known Allergies Allergy Verified 02/28/19 15:26 Date of admission: 02/28/19 20:08 Primary care physician: Petros Rodriguez MD Consults: none Discharging clinician: Ebenezer Verma Anticipated date of discharge: 03/03/19 - Constitutional Vitals: Temp Pulse Resp BP Pulse Ox 98.9 F 106 19 177/10 95 03/03/19 11:30 03/03/19 11:30 03/03/19 11:30 03/03/19 11:30 03/03/19 11:30 Exam: Gen: Lying in bed, NAD HEENT: NC, AT Neck: Trachea midline, no mass Pulm: No respiratory distress, CTAB CV: Normal S1 and S2, RRR Abdomen: Soft, + mild distension, NT, diminished BS Ext: No C/C/E Neuro: No appreciable motor/sensor deficits Skin: Warm and dry, no rash Psych: A&Ox3 - Patient Status Disposition: Transfer Short-Term Hosp Condition: Fair Functional capacity at discharge: independent ambulation Overall status at discharge: patient is not back to baseline - Discharge Instructions Follow Up With: Petros Rodriguez MD [Primary Care Provider] - 1 week - Diet and Activity Activity: increase activity as tolerated, wear oxygen at all times Diet: advance to your usual diet - VTE Reasons for not Prescribing Prophylaxis: Treatment not Indicated - Low risk for VTE
--- NOTE | 2019-03-05 15:46 | Electrocardiograph Report ---
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
== END 2019-03-03 13:47 | disposition short-term general hospital (02) ==
LOC: EMEROOPIK 15:25 → INPPIK 15:25
PROVIDERS: ADMIT Internal Medicine; ATTEND Internal Medicine